=== PATIENT | female | born 1995 | race Caucasian/White ===

== ENCOUNTER 2016-08-03 12:01 | Emergency (ER) | payer BC ==
[2016-08-03 12:28] VITALS: BP 124/58
--- NOTE | 2016-08-03 12:39 | UC ---
Throat Pain/Nasal Evan HPI - HPI Summary HPI Summary: SORE THROAT X 1 DAY + COUGH, FEVER, CHILLS NO NASAL CONGESTION - History of Current Complaint Chief Complaint: UCGeneralIllness Stated Complaint: FEVER,SORE THROAT,COUGH Time Seen by Provider: 08/03/16 12:24 Hx Obtained From: Patient Hx Last Menstrual Period: 06/2016 on BCP's ?: No Onset/Duration: Sudden Onset, Lasting Days - 1, Still Present Severity: Moderate Cough: Nonproductive Associated Signs & Symptoms: Positive: Fever. Negative: Sinus Discomfort, Nasal Discharge, Rash - Allergies/Home Medications Allergies/Adverse Reactions: Allergies Allergy/AdvReac Type Severity Reaction Status Date / Time No Known Allergies Allergy Verified 08/03/16 12:28 Home Medications: Home Medications Norethindrone-Eth Estradiol (T [Necon 0.5/0.75/1-35 mg-Mcg] 1 tab PO DAILY 08/03/16 [History Confirmed 08/03/16] PMH/Surg Hx/FS Hx/Imm Hx Previously Healthy: Yes - Surgical History Surgical History: Yes Surgery Procedure, Year, and Place: wisdom teeth - Family History Known Family History: Negative: Diabetes - Social History Alcohol Use: Occasionally Substance Use Type: None Smoking Status (MU): Never Smoked Tobacco - Immunization History Most Recent Influenza Vaccination: [id number] Review of Systems Constitutional: Fever, Chills, Fatigue Skin: Negative Eyes: Negative ENT: Sore Throat Respiratory: Cough Cardiovascular: Negative Gastrointestinal: Negative Genitourinary: Negative All Other Systems Reviewed And Are Negative: Yes Physical Exam Triage Information Reviewed: Yes Appearance: Well-Appearing, No Pain Distress, Well-Nourished Vital Signs: Initial Vital Signs Temp 100.6 F 08/03/16 12:23 Pulse 102 08/03/16 12:23 Resp 16 08/03/16 12:23 BP 124/58 08/03/16 12:23 Pulse Ox 100 08/03/16 12:23 Vital Signs Reviewed: Yes Eyes: Positive: Conjunctiva Clear ENT: Positive: Normal ENT inspection, Hearing grossly normal, Pharyngeal erythema, TMs normal. Negative: Nasal congestion, Nasal drainage, Tonsillar swelling, Tonsillar exudate Neck: Positive: Supple, Nontender, No Lymphadenopathy Respiratory: Positive: Chest non-tender, Lungs clear, Normal breath sounds Cardiovascular: Positive: No Murmur, Tachycardia Abdominal Exam: Normal Abdomen Description: Positive: Nontender, No Organomegaly Bowel Sounds: Positive: Present Throat Pain/Nasal Course/Dx - Differential Dx/Diagnosis Provider Diagnoses: STREP PHARYNGITIS Discharge - Discharge Plan Condition: Stable Disposition: HOME Prescriptions: Amoxicillin (*) 875 mg PO BID #20 tab Patient Education Materials: Strep Throat (ED)
== END 2016-08-03 12:46 | disposition home or self-care (01) ==
LOC: UCCORT 12:01
DX: J02.0 Streptococcal pharyngitis (principal)
CPT/HCPCS: 87651; 99202; G0463

== ENCOUNTER 2016-09-27 13:52 | Emergency (ER) | payer BC ==
[2016-09-27 15:37] VITALS: BP 104/56
[2016-09-27] MEDS ORDERED: Ibuprofen TAB* 600 MG PO ONE (15:42)
--- NOTE | 2016-09-27 15:46 | UC ---
Throat Pain/Nasal Evan HPI - HPI Summary HPI Summary: 21 yo female with sore throat and swollen glands x 4-5 days slight fever some myalgias - History of Current Complaint Chief Complaint: UCGeneralIllness Stated Complaint: SORE THROAT,SWOLLEN TONSILS,SINUS Time Seen by Provider: 09/27/16 15:32 Hx Obtained From: Patient Hx Last Menstrual Period: 1 month ago - OCP causes skipped menses Onset/Duration: Sudden Onset, Gradual Onset, Lasting Days Severity: Mild Pain Intensity: 3 Pain Scale Used: 0-10 Numeric Cough: None Associated Signs & Symptoms: Positive: Fever - Epiglottits Risk Factors Epiglottis Risk Factors: Negative - Allergies/Home Medications Allergies/Adverse Reactions: Allergies Allergy/AdvReac Type Severity Reaction Status Date / Time No Known Allergies Allergy Verified 09/27/16 15:32 Home Medications: Home Medications Acetaminophen TAB* [Tylenol TAB*] 650 mg PO Q4H PRN 09/27/16 [History Confirmed 09/27/16] PMH/Surg Hx/FS Hx/Imm Hx Previously Healthy: Yes Respiratory History Of: Denies: Asthma, Bronchitis, Pneumonia - Surgical History Surgical History: Yes Surgery Procedure, Year, and Place: wisdom teeth - Family History Known Family History: Negative: Cardiac Disease, Hypertension, Diabetes - Social History Alcohol Use: Occasionally Substance Use Type: None Smoking Status (MU): Never Smoked Tobacco - Immunization History Most Recent Influenza Vaccination: [id number] Review of Systems Constitutional: Fever - sia Skin: Negative Eyes: Negative ENT: Sore Throat Respiratory: Negative Cardiovascular: Negative Gastrointestinal: Negative Genitourinary: Negative Motor: Negative Neurovascular: Negative Musculoskeletal: Myalgia Neurological: Negative Psychological: Negative All Other Systems Reviewed And Are Negative: Yes Physical Exam Triage Information Reviewed: Yes Appearance: Well-Appearing, No Pain Distress, Well-Nourished Vital Signs: Initial Vital Signs Temp 99.3 F 09/27/16 15:32 Pulse 68 09/27/16 15:32 Resp 16 09/27/16 15:32 BP 104/56 09/27/16 15:32 Pulse Ox 100 09/27/16 15:32 Vital Signs Reviewed: Yes Eyes: Positive: Conjunctiva Clear ENT: Positive: Hearing grossly normal, Tonsillar swelling, Other: - midline uvula. Negative: Nasal congestion, Nasal drainage, Trismus, Muffled/hoarse voice Neck: Positive: Supple, Nontender, Enlarged Nodes @ - anterior cervical Respiratory: Positive: Lungs clear, Normal breath sounds, No respiratory distress Cardiovascular: Positive: RRR, No Murmur Musculoskeletal: Positive: ROM Intact, No Edema Neurological: Positive: Alert Psychological Exam: Normal Skin Exam: Normal Throat Pain/Nasal Course/Dx - Differential Dx/Diagnosis Provider Diagnoses: strep throat Discharge - Discharge Plan Condition: Stable Disposition: HOME Referrals: Non Staff,Doctor [Primary Care Provider] -
== END 2016-09-27 16:18 | disposition home or self-care (01) ==
LOC: UCCORT 13:52
DX: J02.0 Streptococcal pharyngitis (principal)
CPT/HCPCS: 87651; 99212; A9270-GY; G0463

== ENCOUNTER 2017-03-18 14:09 | Emergency (ER) | payer BC ==
[2017-03-18 15:23] VITALS: BP 120/64
--- NOTE | 2017-03-18 15:42 | UC ---
Complaint Female HPI - HPI Summary HPI Summary: Pt reports sudden onset of dysuria this morning. Pt also reports that she is sexually active but denies any unusual vagial discharge or odor. - History Of Current Complaint Chief Complaint: UCGU Stated Complaint: URINARY COMPLAINT Time Seen by Provider: 03/18/17 15:23 Hx Obtained From: Patient Hx Last Menstrual Period: 1 wk ago ?: No Onset/Duration: Sudden Onset Character: Burning Aggravating Factor(s): Urination Associated Signs And Symptoms: Positive: Negative - Risk Factors Ectopic Risk Factor: Negative - Allergies/Home Medications Allergies/Adverse Reactions: Allergies Allergy/AdvReac Type Severity Reaction Status Date / Time No Known Allergies Allergy Verified 03/18/17 15:19 PMH/Surg Hx/FS Hx/Imm Hx Previously Healthy: Yes - Surgical History Surgical History: Yes Surgery Procedure, Year, and Place: wisdom teeth - Family History Known Family History: Negative: Cardiac Disease, Hypertension, Diabetes - Social History Occupation: Student - [employer] Lives: Dormitory/Roommates Alcohol Use: Weekly Substance Use Type: None Smoking Status (MU): Never Smoked Tobacco Have You Smoked in the Last Year: No - Immunization History Most Recent Influenza Vaccination: [id number] Review of Systems Constitutional: Negative Skin: Negative Eyes: Negative ENT: Negative Respiratory: Negative Cardiovascular: Negative Gastrointestinal: Negative Genitourinary: Dysuria Motor: Negative Neurovascular: Negative Musculoskeletal: Negative Neurological: Negative Psychological: Negative Is Patient Immunocompromised?: No All Other Systems Reviewed And Are Negative: Yes Physical Exam Triage Information Reviewed: Yes Appearance: Well-Appearing Vital Signs: Initial Vital Signs Temp 97.9 F 03/18/17 15:20 Pulse 82 03/18/17 15:20 Resp 16 03/18/17 15:20 BP 120/64 03/18/17 15:20 Pulse Ox 100 03/18/17 15:20 Vital Signs Reviewed: Yes Eye Exam: Normal ENT Exam: Normal Neck exam: Normal Respiratory Exam: Normal Abdominal Exam: Normal Musculoskeletal Exam: Normal Neurological Exam: Normal Psychological Exam: Normal Skin Exam: Normal Complaint Female Dx - Differential Dx/Diagnosis Differential Diagnosis/HQI/PQRI: Urinary Tract Infection, Other - dysuria, hematuria Provider Diagnoses: dysuria. hematuria. I discussed with the pt that I was also ordering STD testing. Pt agreed to plan of care. Discharge - Discharge Plan Condition: Stable Disposition: HOME Prescriptions: Sulfamethox/Trimethoprim DS* [Bactrim DS 800/160 TAB*] 1 tab PO BID #6 tab Patient Education Materials: Dysuria (ED), Hematuria (ED) Referrals: Non Staff,Doctor [Primary Care Provider] - If Needed Additional Instructions: Please follow up with your PCP as need or return to clinic.
== END 2017-03-18 15:58 | disposition home or self-care (01) ==
LOC: UCCORT 14:09
DX: R30.0 Dysuria (principal); R31.9 Hematuria, unspecified; Z11.3 Encounter for screening for infections with a predominantly sexual mode of transmission
CPT/HCPCS: 81003; 87077; 87086; 87186; 87491; 87591; 99212; G0463

== ENCOUNTER 2017-04-09 10:18 | Emergency (ER) | payer BC ==
[2017-04-09 10:54] VITALS: BP 97/76
--- NOTE | 2017-04-09 11:03 | UC ---
Respiratory Complaint HPI - HPI Summary HPI Summary: 22 y/o female presents to the urgent care c/o cold symptoms for the past 3 weeks. Symptoms started with nasal congestion with some postnasal drip and then cough. Now the cough is productive with green phlegm. She also had left pink eye last week. She has been taking Mucinex PO w/o any relief of symptoms. Her cough is not letting her sleep at night. Pt denies fever, SOB, chest pain, N/V/ D. - History of Current Complaint Chief Complaint: UCRespiratory Stated Complaint: COLD SYMPTOMS Time Seen by Provider: 04/09/17 11:00 Hx Obtained From: Patient Hx Last Menstrual Period: 04/03/17 ?: No Onset/Duration: Gradual Onset, Lasting Weeks - 3 weeks, Still Present Timing: Constant Severity Initially: Moderate Severity Currently: Moderate Pain Intensity: 0 Pain Scale Used: 0-10 Numeric Character: Cough: Productive, Sputum Description: - green Aggravating Factors: Deep Breaths Alleviating Factors: Nothing Associated Signs And Symptoms: Positive: URI, Nasal Congestion. Negative: Wheezing - Risk Factors Pulmonary Embolism Risk Factors: Negative Cardiac Risk Factors: Negative Pseudomonas Risk Factors: Negative Tuberculosis Risk Factors: Negative - Allergies/Home Medications Allergies/Adverse Reactions: Allergies Allergy/AdvReac Type Severity Reaction Status Date / Time No Known Allergies Allergy Verified 04/09/17 10:54 PMH/Surg Hx/FS Hx/Imm Hx Previously Healthy: Yes - Pt denies PMHX - Surgical History Surgical History: Yes Surgery Procedure, Year, and Place: wisdom teeth - Family History Known Family History: Positive: None - Pt denies FMHX Negative: Cardiac Disease, Hypertension, Diabetes - Social History Occupation: Student Lives: Dormitory/Roommates Alcohol Use: Weekly Substance Use Type: None Smoking Status (MU): Never Smoked Tobacco Have You Smoked in the Last Year: No - Immunization History Most Recent Influenza Vaccination: [id number] Vaccination Up to Date: Yes Review of Systems Constitutional: Negative Skin: Negative Eyes: Negative ENT: Sore Throat, Nasal Discharge, Sinus Congestion Respiratory: Cough - productive cough with green phlegm Cardiovascular: Negative Gastrointestinal: Negative Genitourinary: Negative Motor: Negative Neurovascular: Negative Musculoskeletal: Negative Neurological: Negative Psychological: Negative Is Patient Immunocompromised?: No All Other Systems Reviewed And Are Negative: Yes Physical Exam Triage Information Reviewed: Yes Appearance: Well-Appearing, No Pain Distress, Well-Nourished, Thin Vital Signs: Initial Vital Signs Temp 98.8 F 04/09/17 10:51 Pulse 78 04/09/17 10:51 Resp 16 04/09/17 10:51 BP 97/76 04/09/17 10:51 Pulse Ox 100 04/09/17 10:51 Vital Signs Reviewed: Yes Eye Exam: Normal Eyes: Positive: Conjunctiva Clear - PERRLA, EOMI, ENT: Positive: Normal ENT inspection, Hearing grossly normal, Pharyngeal erythema - B/L exudate, Nasal congestion - edematous and erythematous nasal mucosa Neck exam: Normal Neck: Positive: Supple, Nontender, No Lymphadenopathy Respiratory: Positive: Chest non-tender, No respiratory distress, Rhonchi - LF upper posterior lung with rhonchi. Cardiovascular Exam: Normal Cardiovascular: Positive: RRR, No Murmur, Pulses Normal, Brisk Capillary Refill Abdominal Exam: Normal Abdomen Description: Positive: Nontender, No Organomegaly, Soft. Negative: CVA Tenderness (R), CVA Tenderness (L) Bowel Sounds: Positive: Present Musculoskeletal Exam: Normal Musculoskeletal: Positive: Strength Intact, ROM Intact, No Edema Neurological Exam: Normal Psychological Exam: Normal Skin Exam: Normal UC Diagnostic Evaluation - Laboratory O2 Sat by Pulse Oximetry: 100 Respiratory Course/Dx - Course Course Of Treatment: 22 y/o female presents to the urgent care c/o cold symptoms for the past 3 weeks. Symptoms started with nasal congestion with some postnasal drip and then cough. Now the cough is productive with green phlegm. She also had left pink eye last week. She has been taking Mucinex PO w/o any relief of symptoms. Her cough is not letting her sleep at night. Pt denies fever, SOB, chest pain, N/V/D.HX obtained. Rapid strep ordered, result: negative , However Pt with acute bronchitis on examination, Pt Rx Z-michelle PO and Tessalon PO to alleviate cough. Advised If symptoms do not improve or worsen or if she develops SOB with fever to go immediately to the ER further evaluation and treatment. Pt understood and agreed with plan of care. - Differential Dx/Diagnosis Differential Diagnosis/HQI/PQRI: Asthma, Bronchitis, Laryngitis, Lower Resp Infection, Other - pharyngitis, upper respiratory infection. Provider Diagnoses: 1- Acute bronchitis Discharge - Discharge Plan Condition: Stable Disposition: HOME Prescriptions: Azithromyxin MICHELLE (NF) [Z-Michelle (Zithromax) 250 mg tabs #6] 2 tab PO .TODAY, THEN 1 DAILY #6 tab Benzonatate CAP* [Tessalon 100 MG CAP*] 100 mg PO TID #15 cap Patient Education Materials: Acute Bronchitis (ED) Referrals: Non Staff,Doctor [Primary Care Provider] - [facility] [Outside] - If Needed Additional Instructions: 1-Please take full course of antibiotic to avoid resistance. 2-Take Tessalon PO tabs as directed to alleviate cough. Increase fluid intake, rest and eat well. 3- If symptoms do not improve or worsen or your develop SOB with fever and severe wheezing please go immediately to the ER further evaluation and treatment. 4- F/u with your PCP if needed
== END 2017-04-09 11:37 | disposition home or self-care (01) ==
LOC: UCCORT 10:18
DX: J20.9 Acute bronchitis, unspecified (principal)
CPT/HCPCS: 87651; 99212; G0463

== ENCOUNTER 2017-05-25 09:35 | Emergency (ER) | payer BC ==
--- NOTE | 2017-05-25 09:38 | UC ---
Throat Pain/Nasal Evan HPI - HPI Summary HPI Summary: 22 YEAR OLD FEMALE PRESENTS WITH COMPLAINS OF SORE THROAT. - History of Current Complaint Stated Complaint: ST Time Seen by Provider: 05/25/17 09:38 Hx Obtained From: Patient Hx Last Menstrual Period: 04/03/17 ?: Yes Onset/Duration: Sudden Onset Severity: Moderate Pain Scale Used: 0-10 Numeric - 5 Cough: Nonproductive - Allergies/Home Medications Allergies/Adverse Reactions: Allergies Allergy/AdvReac Type Severity Reaction Status Date / Time No Known Allergies Allergy Verified 05/25/17 09:41 PMH/Surg Hx/FS Hx/Imm Hx Previously Healthy: Yes - Surgical History Surgical History: Yes Surgery Procedure, Year, and Place: wisdom teeth - Family History Known Family History: Positive: None - Pt denies FMHX Negative: Cardiac Disease, Hypertension, Diabetes - Social History Alcohol Use: Weekly Substance Use Type: None Smoking Status (MU): Never Smoked Tobacco Have You Smoked in the Last Year: No - Immunization History Most Recent Influenza Vaccination: [id number] Vaccination Up to Date: Yes Review of Systems Constitutional: Negative Skin: Negative Eyes: Negative ENT: Sore Throat, Nasal Discharge, Sinus Congestion, Sinus Pain/Tenderness Respiratory: Negative Cardiovascular: Negative Gastrointestinal: Negative Genitourinary: Negative Motor: Negative Neurovascular: Negative Musculoskeletal: Negative Neurological: Negative Psychological: Negative All Other Systems Reviewed And Are Negative: Yes Physical Exam Triage Information Reviewed: Yes Vital Signs Reviewed: Yes Eye Exam: Normal ENT: Positive: Pharyngeal erythema, Nasal congestion, Nasal drainage, Tonsillar swelling, Sinus tenderness Dental Exam: Normal Neck exam: Normal Neck: Positive: 1 Respiratory Exam: Normal Cardiovascular Exam: Normal Abdominal Exam: Normal Musculoskeletal Exam: Normal Neurological Exam: Normal Psychological Exam: Normal Skin Exam: Normal Throat Pain/Nasal Course/Dx - Differential Dx/Diagnosis Provider Diagnoses: PHARYNGITIS Discharge - Discharge Plan Condition: Stable Disposition: HOME Prescriptions: Amoxicillin PO (*) [Amoxicillin 875 MG (*)] 875 mg PO BID #20 tab LoraTADine TAB(NF) [Claritin 10 MG TAB(NF)] 10 mg PO DAILY #30 tab Magic M W2 Eliud/Maal/Nyst/Lido* 5 ml SWISH SPIT QID PRN #120 ml PRN Reason: Pain Patient Education Materials: Pharyngitis (ED) Referrals: Non Staff,Doctor [Primary Care Provider] -
[2017-05-25 09:52] VITALS: BP 104/62
== END 2017-05-25 10:11 | disposition home or self-care (01) ==
LOC: UCCORT 09:35
DX: J02.9 Acute pharyngitis, unspecified (principal)
CPT/HCPCS: 87070; 87077; 87651; 99212; G0463

== ENCOUNTER 2017-06-08 13:58 | Emergency (ER) | payer BC ==
[2017-06-08 15:34] VITALS: BP 98/52
--- NOTE | 2017-06-08 15:53 | UC ---
Throat Pain/Nasal Evan HPI - HPI Summary HPI Summary: 22 yo female was dxed with mono by her PCP on or about 05/26 she was told to get rechecked she feels 100% better no fatigue no st no simental no myalgias no abd pain - History of Current Complaint Chief Complaint: UCGeneralIllness Stated Complaint: RECHECK Time Seen by Provider: 06/08/17 15:51 Hx Obtained From: Patient Hx Last Menstrual Period: 06/02/17 Onset/Duration: Gradual Onset, Lasting Weeks Severity: Mild Pain Intensity: 0 Pain Scale Used: 0-10 Numeric Cough: None Associated Signs & Symptoms: Positive: Negative - Allergies/Home Medications Allergies/Adverse Reactions: Allergies Allergy/AdvReac Type Severity Reaction Status Date / Time No Known Allergies Allergy Verified 06/08/17 15:30 PMH/Surg Hx/FS Hx/Imm Hx Previously Healthy: Yes - MONO - Surgical History Surgical History: Yes Surgery Procedure, Year, and Place: wisdom teeth - Family History Known Family History: Positive: None - Pt denies FMHX Negative: Cardiac Disease, Hypertension, Diabetes - Social History Alcohol Use: Occasionally Substance Use Type: None Smoking Status (MU): Never Smoked Tobacco Have You Smoked in the Last Year: No - Immunization History Most Recent Influenza Vaccination: no Vaccination Up to Date: Yes Review of Systems Constitutional: Negative Skin: Negative Eyes: Negative ENT: Negative Respiratory: Negative Cardiovascular: Negative Gastrointestinal: Negative Genitourinary: Negative Motor: Negative Neurovascular: Negative Musculoskeletal: Negative Neurological: Negative Psychological: Negative Is Patient Immunocompromised?: No All Other Systems Reviewed And Are Negative: Yes Physical Exam Triage Information Reviewed: Yes Appearance: Well-Appearing, No Pain Distress, Well-Nourished Vital Signs: Initial Vital Signs Temp 97.8 F 06/08/17 15:30 Pulse 72 06/08/17 15:30 Resp 16 06/08/17 15:30 BP 98/52 06/08/17 15:30 Pulse Ox 100 06/08/17 15:30 Vital Signs Reviewed: Yes Eyes: Positive: Conjunctiva Clear ENT: Positive: Hearing grossly normal, Pharynx normal, TMs normal, Uvula midline. Negative: Pharyngeal erythema, Nasal congestion, Nasal drainage, TM bulging, TM dull, TM red, Tonsillar swelling, Tonsillar exudate, Trismus, Muffled voice, Hoarse voice, Dental tenderness, Sinus tenderness Dental Exam: Normal Neck: Positive: Supple, Nontender, Enlarged Nodes @ - mild ant cerv, neg post cerv Respiratory: Positive: Lungs clear, Normal breath sounds, No respiratory distress, No accessory muscle use Cardiovascular: Positive: RRR, No Murmur Abdomen Description: Positive: Nontender, No Organomegaly. Negative: Hepatomegaly, Splenomegaly Musculoskeletal: Positive: ROM Intact, No Edema Neurological: Positive: Alert Psychological Exam: Normal Skin Exam: Normal Throat Pain/Nasal Course/Dx - Differential Dx/Diagnosis Provider Diagnoses: Recheck mononucleosis Discharge - Discharge Plan Condition: Stable Disposition: HOME Patient Education Materials: Mononucleosis (ED) Referrals: Non Staff,Doctor [Primary Care Provider] - Additional Instructions: I don't appreciate any enlargement of you spleen or liver on exam I would wait 2 more weeks before you do anything strenuous call for any questions return for any problems
== END 2017-06-08 15:58 | disposition home or self-care (01) ==
LOC: UCCORT 13:58
DX: B27.90 Infectious mononucleosis, unspecified without complication (principal)
CPT/HCPCS: 99211; G0463